=== PATIENT | male | born 1990 | race Caucasian/White ===

== ENCOUNTER → 2016-12-15 | Day surgery (SDC) | payer OTHER ==
[~2016-12-15] MED LIST: BUPIVACAINE 0.5% 30 ML VIAL ONE; CEFAZOLIN 1 GM VIAL ONE; DEXAMETHASONE 4 MG/ML VIAL IV ONE; FENTANYL 100 MCG/2 ML VIAL IV PRN; FENTANYL 250 MCG/5 ML VIAL IV ONE; GLYCOPYRROLATE 1 MG VIAL IM ONE; HYDROmorphone 1 MG INJECTION IV PRN; LABETALOL 20 MG/4 ML SYRINGE IV PRN; LIDOCAINE 100 MG PFS IV ONE; MEPERIDINE 25 MG/ML TUBEX IV PRN; METOCLOPRAMIDE 10 MG/2 ML VIAL IV ONE; MIDAZOLAM 2 MG/2 ML VIAL IV ONE; NEOSTIGMINE 1 MG/1 ML (1:1000) INJ 10 ML MDV IM ONE; ONDANSETRON HCL 4 MG ODT TAB PO PRN; ONDANSETRON HCL 4 MG/2 ML VIAL IV ONE; ONDANSETRON HCL 4 MG/2 ML VIAL IV PRN; PROPOFOL 200 MG/20 ML VIAL IV ONE; ROCURONIUM 50 MG/5 ML VIAL IV ONE; SUCCINYLCHOLINE 20 MG/1 ML INJ 10 ML MDV IV ONE; hydrALAZINE 20 MG/ML VIAL IV PRN
[2016-12-15 09:49] LABS: AUTOMATED BASOPHIL 0.7 % (0-2); AUTOMATED LYMPH 29.4 % (17-44); AUTOMATED MONOCYTE 7.8 % (3-10); AUTOMATED NEUTROPHIL 58.1 % (45-76); MPV 7.5 fL (7.4-10.4)
[2016-12-15 09:52] LABS: LEUKOCYTES/URINE NEG (NEGATIVE); NITRITE/URINE NEG (NEGATIVE); URINE OCCULT BLOOD NEG (NEG/TRACE); WBC/URINE 0-2 (0-2)
[2016-12-15 10:04] LABS: BLOOD UREA NITROGEN 14 MG/DL (9-20); CALCIUM 9.4 MG/DL (8.4-10.2); CALCULATED OSMOLALITY 269 MOs/Kg (270-290); CHLORIDE 102 mEq/L (98-107); GLUCOSE 90 MG/DL (70-99); SODIUM LEVEL 139 mEq/L (137-146)
--- NOTE | 2016-12-15 12:22 | HIM.ANES ---
Anesthesia Evaluation & Plan Consented Procedure: RIGHT INGUINAL HERNIA REPAIR - Focused Review of Systems Cardiac History: No: Hx Hypertension, Hx Cardiac Disorders HEENT: Yes: Loose/Decaying Teeth, Hx Vision Problem (PRESCRIPTION GLASSES), Other HEENT Problems Hx Other HEENT Problems: ALLERGIC RHINNITIS Respiratory: Yes: Other Hx Respiratory No: Hx Asthma Gastrointestinal: Yes: Hx Gastroesophageal Reflux Disease (NO MEDS), Hx Gastrointestinal Disorders Neurological/Musculoskeletal: Yes: Hx Migraine, Hx Numbness, Tingling, Weakness in Arms & Legs (RIGHT FOREARM R/T TRAUMA AND SURGERY), Hx Neurological Disorders Psychological: No Hx Mental/Emotional Disorders Blood/Autoimmune: No: Hx AIDS, Hx Hepatitis (type) Comment Only: Hx Blood Transfusions (UNSURE) Smoking Status: Former smoker (quit 2 yrs ago) - Focused Physical Exam NPO since: 12/14/161999 Mallampati: Class II Thyromental Distance: Greater than 3 Neck: Full Range of Motion Dental: Loose/Decaying Teeth Cardiovascular/Chest: Normal Respiratory: Decreased breath sounds Any problems with anesthesia, including nausea and vomiting?: Yes (CAN WAKE UP ANGRY) Any relatives with a history of Malignant Hyperthermia?: No Does patient have a history of Malignant Hyperthermia?: No Beta Frannie given (if appropriate): N/A Does the patient have a history of Motion Sickness-: No Other: CBC/BMP/Other 12/15/16 09:41 12/15/16 09:41 Allergies Allergy/AdvReac Type Severity Reaction Status Date / Time No Known Allergies Allergy Verified 12/15/16 11:01 Home Medications Medication Instructions Recorded Last Taken Type No Home Medications 12/14/16 Unknown History Height and Weight Patient's height 5 ft 6 in Patient's weight 86.183 kg Vital Signs Temperature 98.0 F 12/15/16 11:16 Pulse Rate 54 L 12/15/16 11:16 Respiratory Rate 18 12/15/16 11:16 Blood Pressure 134/73 12/15/16 11:16 Pulse Oxygen Saturation 99 12/15/16 11:16 METS - Level of Activity: Climbing stairs(1 flight),walking level ground, running short distance - Anesthetic Plan Anesthesia Type: General ASA Class: 2 -: I have examined this patient and reviewed the medical record. The patient has been assessed prior to anesthesia. Risks and benefits of anesthesia and anesthetic technique options have been discussed and all questions answered. The patient accepts the risk and desires me to proceed with the planned anesthetic.
--- NOTE | 2016-12-15 13:08 | HIMOPRPT ---
DATE OF PROCEDURE: 12/15/16 PREOPERATIVE DIAGNOSIS: Right inguinal hernia. POSTOPERATIVE DIAGNOSIS: Indirect right inguinal hernia. PROCEDURE: Right inguinal hernia repair with large Bard mesh plug and patch. SURGEON: Saul Winston M.D. ANESTHESIA: General. COMPLICATIONS: None. SPECIMEN: None PACKINGS AND DRAINS: None. ESTIMATED BLOOD LOSS: None OPERATIVE FINDINGS AND TECHNIQUE: With consent, the patient was brought to the operative suite, placed in supine position. Following general anesthesia, the right inguinal area was prepped and draped in usual fashion. An oblique incision made in the right inguinal area. Dissection was carried through the skin to the underlying subcutaneous tissue. Scarpas fascia was incised, and ultimately the external oblique aponeurosis was identified. Incision was made in line of fibers of external oblique aponeurosis and transection was taken through the external ring. There was an obvious indirect inguinal hernia sac. The floor of the inguinal canal was intact. The indirect inguinal hernia sac was dissected high to the internal ring and reduced to the internal ring. A large Bard mesh Plug was fashioned and the plug placed through the internal ring and secured circumferentially using horizontal mattress sutures of 0 Vicryl. The onlay patch was then placed across the floor of the canal and secured using 0 Vicryl sutures well. Repair was secured. Irrigation was achieved and hemostasis was achieved. Deep, subcutaneous, and subcuticular tissues were injected with 0.5% Marcaine. External oblique aponeurosis was reapproximated with 3 0 Vicryl suture. Scarpas fascia was closed using 2-0 plain. Skin approximation was accomplished using 4- 0 Monocryl in subcuticular fashion. Dermabond, 2x2 gauze, and Tegaderm dressing were applied to the wound. The patient tolerated the procedure well with findings as described. At termination of procedure, all instrument, sponge, and needle counts were correct.
[2016-12-15 14:25] VITALS: TEMP 97.4
[2016-12-15 14:56] VITALS: PULSE 55
[2016-12-15 17:51] VITALS: BP 156/81
--- NOTE | 2016-12-15 17:51 | SC.ANESPOS ---
Post-Anesthesia Note LOC: Fully Awake Post-Anesthesia Assessment: Awake, Returned to Baseline, Hemodynamically Stable , Pain Control Adequate Phase I & II Recovery Complete: Yes Apparent Anesthesia Complication: No : N PACU Discharge Time: 14:18 - Vital Signs Blood Pressure: 156/81 Pulse: 55 Resp Rate: 16 O2 Sat: 99 Temp: 97.4 F - Comments Anesthesia Discharge Time Report Time 14:18
== END ==
LOC: SDC 09:00
PROVIDERS: ATTEND Surgery Vascular Surgery
PROC: 0YU50JZ Supplement Right Inguinal Region with Synthetic Substitute, Open Approach (ICD-10-PCS; principal; 2016-12-15 11:25)
DX: K40.90 Unilateral inguinal hernia, without obstruction or gangrene, not specified as recurrent (principal); K21.9 Gastro-esophageal reflux disease without esophagitis; G43.909 Migraine, unspecified, not intractable, without status migrainosus; Z87.891 Personal history of nicotine dependence
CPT/HCPCS: 49505; 80053; 81001; 85025; C1781; J0330; J0690; J1100; J2001; J2250; J2405; J2710; J2765; J3010; J3490